=== PATIENT | male | born 2005 | race Caucasian/White ===

== ENCOUNTER 2025-03-03 20:28 | Emergency (ER) | payer OTHER, SELFPAY ==
[2025-03-03 20:33] VITALS: BP 119/77; PULSE 75; RESP 16; TEMP 36.6; O2SAT 98; BMI 27.3
--- NOTE | 2025-03-03 20:38 | ECG_ITS ---
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 Measurements Intervals [place] Rate: 73 P: 62 NC: 135 QRS: 102 QRSD: 154 T: 51 QT: 398 QTc: 439 Interpretive Statements SINUS RHYTHM POSSIBLE LEFT ATRIAL ENLARGEMENT [-0.1mV P-WAVE IN V1/V2] RBBB Possible RIGHT VENTRICULAR HYPERTROPHY [SOME/ALL OF: PROMINENT R IN V1, LATE TRANSITION, RAD, MONIE, SSS] No previous ECG available for comparison Electronically Signed On 03-04-2025 12:32:06 CDT by Shabbir Spivey M.D. [id number] [id number]
[2025-03-03 21:05] LABS: Basophils % 0.3 %; Eosinophils # 0.1 10^3/uL (0.0-0.8); Eosinophils % 2.3 %; Hematocrit 45.4 % (37-53); Lymphocytes # 1.1 10^3/uL (0.8-4.8); Lymphocytes % 18.4 %; Mean Corpuscular HGB Conc 32.4 g/dL (30-55); Mean Corpuscular Hemoglobin 29.1 pg (27-33); Mean Corpuscular Volume 89.7 fl (82-101); Mean Platelet Volume 11.6 fL (7.4-10.4); Monocytes # 0.6 10^3/uL (0.2-0.9); Neutrophils # 4.14 10^3/uL (1.8-7.7); Neutrophils % 68.7 %; Nucleated Red Blood Cells % 0 %; Platelet Count 170 10^3/cmm (157-399); Red Blood Count 5.06 10^6/uL (3.85-5.65); Red Cell Distribution Width 12.4 % (12.1-15.1); White Blood Count 6.03 10^3/uL (3.29-11.43)
[2025-03-03 21:27] LABS: Alanine Aminotransferase 92 U/L (0-41); Albumin Level 4.7 g/dL (3.5-5.2); Alkaline Phosphatase 127 U/L (40-130); Blood Urea Nitrogen 14 mg/dL (6-20); Calcium 8.8 mg/dL (8.5-10.5); Carbon Dioxide 23 mmol/L (22-29); Chloride 100 mmol/L (98-107); Creatinine Clr Calc Pharmacy 150.9802; Globulin 2.5 g/dL (1.3-4.6); Glomerular Filtration Rate 120.9 mL/min (90-130); Glucose 77 mg/dL (65-115); Osmolality Calculated 285 mOsm/kg (285-295); Sodium 138 mmol/L (136-145); Total Bilirubin 0.2 mg/dL (0.15-1.2); Total Protein 7.2 g/dL (6.6-8.7)
[2025-03-03 21:31] LABS: Troponin(5th) Baseline < 6 ng/L (0-15)
[2025-03-03 21:33] LABS: Anion Gap 19.4 (5-19); Aspartate Amino Transferase 44 U/L (0-40); Potassium 4.4 mmol/L (3.5-5.1)
--- NOTE | 2025-03-03 21:43 | CTR_ITS ---
PROCEDURE INFORMATION: Exam: CTA Chest With Contrast Exam date and time: 03/03/2025 10:00 PM Age: 20 years old Clinical indication: Left-sided; Prior surgery; Surgery date: 6+ months; Surgery type: Pulmonary valve replacement; C/O left sided chest pain since yesterday. TECHNIQUE: Imaging protocol: Computed tomographic angiography of the chest with contrast. Exam focused on the arteries. 3D rendering (Not supervised by radiologist): MIP and/or 3D reconstructed images were created by the technologist. Radiation optimization: All CT scans at this facility use at least one of these dose optimization techniques: automated exposure control; mA and/or kV adjustment per patient size (includes targeted exams where dose is matched to clinical indication); or iterative reconstruction. Contrast material: OMNI 350; Contrast volume: 60 ml; Contrast route: INTRAVENOUS (IV); COMPARISON: No relevant prior studies available. RADIATION DOSE METRICS: Total DLP (mGy-cm): 392.61 FINDINGS: Pulmonary arteries: No evidence of pulmonary thromboembolism. Postsurgical changes of the mediastinum compatible with pulmonic valve replacement. Aorta: No evidence of aneurysmal dilatation or dissection of the thoracic aorta. Thyroid: Grossly unremarkable. Lungs: No focal consolidation. No evidence of pneumonia. Pleural spaces: No evidence of pleural effusion. No pneumothorax. Heart: Mild cardiomegaly. There is prominence of the right atrium and ventricle, possibly reflecting increased right-sided pressures. No pericardial effusion. Mediastinal space: No evidence of mediastinal mass, fluid collection or hematoma. Lymph nodes: No mediastinal or hilar adenopathy. Bones/joints: No evidence of acute fracture or aggressive osseous lesion. Soft tissues: No evidence of fluid collection or hematoma in the superficial soft tissues. Other findings: No evidence of acute abnormality in the upper abdomen. CT/CT angio chest PE protcl [id number] IMPRESSION: 1. No evidence of PE or acute aortic abnormality. 2. Prior pulmonic valve replacement. Consider cardiothoracic surgery evaluation and echocardiography to evaluate RV function.
[2025-03-03] MEDS: ondansetron 2 mg/ML SDV 2 mL 4 MG IVP (22:39)
[2025-03-03] MEDS: ketorolac 30 mg/mL INJ IVP (22:39)
--- NOTE | 2025-03-03 22:41 | ECG_ITS ---
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 Measurements Intervals [place] Rate: 59 P: 64 [place]: 157 QRS: 99 QRSD: 155 T: 53 QT: 421 QTc: 420 Interpretive Statements SINUS BRADYCARDIA POSSIBLE LEFT ATRIAL ENLARGEMENT [-0.1mV P-WAVE IN V1/V2] RBBB POSSIBLE RIGHT VENTRICULAR HYPERTROPHY No previous ECG available for comparison Electronically Signed On 03-04-2025 12:38:52 CDT by Shabbir Spviey M.D. [id number] [id number]
[2025-03-03 22:52] VITALS: BP 130/80; PULSE 64; RESP 18
[2025-03-03 23:11] LABS: Troponin 5 2HR < 6.0 ng/L (0-15); Troponin 5 2HR Delta 0 ABS# (0-10)
--- NOTE | 2025-03-04 00:19 | W.ED.CHESTPA ---
HPI - Chest Pain General: Chief Complaint: Chest Pain Stated Complaint: CP Time Seen by Provider: 03/03/25 21:29 History of Present Illness: 20-year-old male patient with a history of tetralogy of Fallot as a . He underwent repair at 3 months, and a pulmonary valve replacement in 2022. He presents with left-sided sharp chest pain. Started yesterday. Pain is on and off. No fever. No cough. No swelling of the legs. He took a 3-hour car ride today, but pain started yesterday. Related Data Previous Rx's ?Medication ?Instructions ?Recorded ketorolac 10 mg tablet 10 mg PO TID PRN pain #10 tabs 03/04/25 Allergies Allergy/AdvReac Type Severity Reaction Status Date / Time No Known Allergies Allergy Verified 03/03/25 20:39 Physical Exam Const: COMMON NORMALS: no acute distress GENERAL APPEARANCE: cooperative; not ill appearing and not frail appearing HENMT: COMMON NORMALS: normocephalic, atraumatic and Normal external nose present HEAD & SCALP: normocephalic and atraumatic FACE & SINUS: normal facial exam and face symmetric NOSE: Normal external nose present Eye: COMMON NORMALS: Equal, round and reactive pupils present and EOMs intact bilaterally PUPIL: Yes Equal, round and reactive pupils present Neck/C-Spine: GENERAL: Yes trachea midline Chest: CHEST: Yes Symmetrical chest wall rise Resp: COMMON NORMALS: normal respiratory effort, No retractions, No use of accessory muscles and clear to auscultation bilaterally AUSCULTATION: clear to auscultation bilaterally Cardio: COMMON NORMALS: regular rate and regular rhythm RATE: regular rate RHYTHM: regular rhythm GI: COMMON NORMALS: Normal to inspection, nondistended, normoactive bowel sounds present Extremity: COMMON NORMALS: no pedal edema Neuro: JEAN COMA SCALE: document GCS findings [place] coma scale eye opening: Spontaneous [place] coma scale verbal response: Orientated [place] coma scale motor response: Obey commands Jean coma scale total score: 15 SENSORY EXAM: Yes extremities (intact) Psych: COMMON NORMALS: speech normal SPEECH: Yes normal speech Skin: COMMON NORMALS: no rashes or lesions noted GENERAL SKIN EXAM: no rashes or lesions noted Course Vital Signs: Vital signs: Vital Signs Temperature 97.9 F 03/03/25 20:33 Pulse Rate 72 03/04/25 00:57 Respiratory Rate 18 03/04/25 00:57 Blood Pressure 126/66 03/04/25 00:57 Pulse Oximetry 98 03/04/25 00:57 Oxygen Delivery Me thod Room Air 03/03/25 22:52 MDM - Chest Pain Medical Decision Making EKG shows no acute ST wave changes. Troponins are not detectable at 0 and 2 hours. CTA of the chest reveals prior pulmonic valve replacement and enlarged right atrium consistent with his history of tetralogy of Fallot. There is no pericardial effusion. There is no clot. There is no pneumothorax pneumonia or pulmonary edema. He will be allowed discharge to follow-up as an outpatient. Case management has been asked to make him a cardiology follow-up appointment Lab Data 03/03/25 20:58 03/03/25 20:58 Radiology Impressions Chest CTA 03/03/25 21:43 IMPRESSION: 1. No evidence of PE or acute aortic abnormality. 2. Prior pulmonic valve replacement. Consider cardiothoracic surgery evaluation and echocardiography to evaluate RV function. Laboratory Results WBC 6.03 10^3/uL (3.29-11.43) 03/03/25 20:58 RBC 5.06 10^6/uL (3.85-5.65) 03/03/25 20:58 Hgb 14.70 g/dL (11.27-16.99) 03/03/25 20:58 Hct 45.4 % (37-53) 03/03/25 20:58 MCV 89.7 fl (82-101) 03/03/25 20:58 MCH 29.1 pg (27-33) 03/03/25 20:58 MCHC 32.4 g/dL (30-55) 03/03/25 20:58 RDW 12.4 % (12.1-15.1) 03/03/25 20:58 Plt Count 170 10^3/cmm (157-399) 03/03/25 20:58 MPV 11.6 fL (7.4-10.4) H 03/03/25 20:58 Neut % (Auto) 68.7 % 03/03/25 20:58 Lymph % (Auto) 18.4 % 03/03/25 20:58 [place] % (Auto) 10.0 % 03/03/25 20:58 Eos % (Auto) 2.3 % 03/03/25 20:58 Baso % (Auto) 0.3 % 03/03/25 20:58 Neut # (Auto) 4.14 10^3/uL (1.8-7.7) 03/03/25 20:58 Lymph # (Auto) 1.1 10^3/uL (0.8-4.8) 03/03/25 20:58 [place] # (Auto) 0.6 10^3/uL (0.2-0.9) 03/03/25 20:58 Eos # (Auto) 0.1 10^3/uL (0.0-0.8) 03/03/25 20:58 Baso # (Auto) 0.0 10^3/uL (0.0-0.1) 03/03/25 20:58 Nucleated RBC % (auto) 0 % 03/03/25 20:58 Nucleated RBCs # 0.0 /100WBC 03/03/25 20:58 Sodium 138 mmol/L (136-145) 03/03/25 20:58 Potassium 4.4 mmol/L (3.5-5.1) 03/03/25 20:58 Chloride 100 mmol/L (98-107) 03/03/25 20:58 Carbon Dioxide 23 mmol/L (22-29) 03/03/25 20:58 Anion Gap 19.4 (5-19) H 03/03/25 20:58 BUN 14 mg/dL (6-20) 03/03/25 20:58 Creatinine 0.8 mg/dL (0.7-1.2) 03/03/25 20:58 GFR Calculation 120.9 mL/min (90-130) 03/03/25 20:58 Glucose 77 mg/dL (65-115) 03/03/25 20:58 Calculated Osmolality 285 mOsm/kg (285-295) 03/03/25 20:58 Calcium 8.8 mg/dL (8.5-10.5) 03/03/25 20:58 Total Bilirubin 0.2 mg/dL (0.15-1.2) 03/03/25 20:58 AST 44 U/L (0-40) H 03/03/25 20:58 ALT 92 U/L (0-41) H 03/03/25 20:58 Alkaline Phosphatase 127 U/L (40-130) 03/03/25 20:58 Troponin T Baseline < 6 ng/L (0-15) 03/03/25 20:58 Troponin T 120 Minute < 6.0 ng/L (0-15) 03/03/25 22:43 Delta Troponin T 0 ABS# (0-10) 03/03/25 22:43 Total Protein 7.2 g/dL (6.6-8.7) 03/03/25 20:58 Albumin 4.7 g/dL (3.5-5.2) 03/03/25 20:58 Globulin 2.5 g/dL (1.3-4.6) 03/03/25 20:58 All radiology interpretation(s) finalized by discharge Discharge Plan Discharge Patient Disposition: Home Clinical Impression: Chest pain Condition: Stable Prescriptions: New ketorolac 10 mg tablet 10 mg PO TID PRN (Reason: pain) Qty: 10 0RF Discharge Orders: Discharge ED (Routine); Ordered 03/04/25 Ordered By: Brendon Roberts Patient Instructions: Chest Pain (ED), Opioid Safety, Pain Management Activity Restrictions/Additional Instructions: Medication as directed. Return for worsening pain despite treatment, worsening shortness of breath, fever, cough, other concerning symptoms. Case management has been asked to make you an appointment with cardiology. You should get a call this coming week. Print Language: Chinese Coding Level of Care Code ED Outboard System Operator for Leonardo Staton
[2025-03-04 00:57] VITALS: BP 126/66; PULSE 72; RESP 18; O2SAT 98
--- NOTE | 2025-03-07 07:57 | DCPLANNER ---
Message sent to Cardiology for follow up-EKG shows no acute ST wave changes. Troponins are not detectable at 0 and 2 hours. CTA of the chest reveals prior pulmonic valve replacement and enlarged right atrium consistent with his history of tetralogy of Fallot. There is no pericardial effusion. There is no clot. There is no pneumothorax pneumonia or pulmonary edema. He will be allowed discharge to follow-up as an outpatient. Case management has been asked to make him a cardiology follow-up appointment
== END 2025-03-04 00:58 | disposition home or self-care (01) ==
PROVIDERS: Emergency Provider Emergency Medicine
DX: R07.9 Chest pain, unspecified (principal); R00.1 Bradycardia, unspecified
CPT/HCPCS: 36415; 71275; 80053; 84484; 85025; 93005; 96374; 96375; 99285; J1885; J2405